=== PATIENT | female | born 1985 | race Caucasian/White ===

== ENCOUNTER 2020-01-05 03:59 | Emergency (ER) | payer SELFPAY ==
[~2020-01-05] VITALS: Ht 162.6 cm; Wt 100.2 kg
[2020-01-05 04:06] VITALS: Ht 162.6 cm; Wt 100.2 kg
[2020-01-05 05:24] VITALS: BP 144/55
== END 2020-01-05 05:24 | disposition home or self-care (01) ==
LOC: ED 03:59
DX: H92.02 Otalgia, left ear (principal); R59.0 Localized enlarged lymph nodes
CPT/HCPCS: J1885

== ENCOUNTER 2020-01-12 14:46 | Emergency (ER) | payer SELFPAY ==
[~2020-01-12] VITALS: Ht 162.6 cm; Wt 103.0 kg
[2020-01-12 15:16] VITALS: Ht 162.6 cm; Wt 103.0 kg
[2020-01-12 19:17] VITALS: BP 129/84
== END 2020-01-12 19:17 | disposition home or self-care (01) ==
LOC: ED 14:46
DX: H66.91 Otitis media, unspecified, right ear (principal); H60.93 Unspecified otitis externa, bilateral; R11.0 Nausea
CPT/HCPCS: 87804; J1885; Q0162